=== PATIENT | female | born 1955 | race Caucasian/White ===

== ENCOUNTER 2022-09-08 09:34 | Emergency (ER) | payer OTHER ==
[~2022-09-08] VITALS: Ht 154.9 cm; Wt 68.0 kg
[2022-09-08 10:23] LABS: BILIRUBIN Negative (Negative); BLOOD Trace-Lysed (Negative); CLARITY Clear (Clear); COLOR Yellow (Yellow); GLUCOSE Negative (Negative); KETONE Negative (Negative); LEUKO ESTERASE Negative (Negative); NITRITE Negative (Negative); UROBILINOGEN 0.2 E.U./dl (0.0-1.0)
[2022-09-08 10:41] LABS: BASO % 0.7 % (0.0-1.0); EOS # 0.1 10*3/uL (0.0-0.4); EOS % 2.1 % (1.0-4.0); HEMATOCRIT 38.8 % (37.0-47.0); LYMPH # 1.4 10*3/uL (1.3-4.4); LYMPH % 33.2 % (27.0-41.0); MEAN CELL VOLUME 93.5 fl (81.0-99.0); MEAN CORPUSCULAR HGB 31.3 pg (27.0-31.0); MEAN CORPUSCULAR HGB CONC 33.5 g/dl (33.0-37.0); MEAN PLATELET VOLUME 9.4 fl (9.6-12.3); MONO # 0.5 10*3/uL (0.1-1.0); MONO % 10.9 % (3.0-9.0); NEUT # 2.3 10*3/uL (2.3-7.9); NEUT % 53.1 % (47.0-73.0); PLATELET COUNT AUTOMATED 256 10*3/uL (130-400); RED BLOOD COUNT 4.15 10*6/uL (4.10-5.10); RED CELL DISTRI WIDTH 13.1 % (0-14.5); WHITE BLOOD COUNT 4.3 10*3/uL (4.8-10.8)
[2022-09-08 10:48] LABS: BACTERIA 2+
[2022-09-08 10:49] LABS: EPITHELIAL CELLS 0-2; WBC 0-2 wbc/hpf (0-5)
[2022-09-08 10:57] LABS: BUN 14 mg/dl (9-23); CHLORIDE 108 mmol/L (98-107); LIPASE 70 U/L (12-53); POTASSIUM 3.9 mmol/L (3.4-5.1)
[2022-09-08] MEDS ORDERED: METHOCARBAMOL500 M1 PO (11:48)
== END 2022-09-08 11:50 | disposition home or self-care (01) ==
LOC: ED 09:34
PROVIDERS: Emergency Medicine
DX: R10.32 Left lower quadrant pain (principal); M54.6 Pain in thoracic spine; Z88.8 Allergy status to other drugs, medicaments and biological substances

== ENCOUNTER 2024-07-18 13:58 | Emergency (ER) | payer OTHER ==
[~2024-07-18] VITALS: Ht 154.9 cm; Wt 67.1 kg
[~2024-07-18 13:58] MED LIST: METHOCARBAMOL500 M1 PO
[2024-07-18 15:01] LABS: BILIRUBIN Negative (Negative); BLOOD 2+ (Negative); CLARITY Clear (Clear); COLOR Yellow (Yellow); GLUCOSE Negative (Negative); KETONE Negative (Negative); LEUKO ESTERASE 1+ (Negative); NITRITE Negative (Negative); SPECIFIC GRAVITY <= 1.005 (1.001-1.030); UROBILINOGEN 0.2 E.U./dl (0.0-1.0)
[2024-07-18 15:26] LABS: MEAN CELL VOLUME 95.2 fl (81.0-99.0); MEAN CORPUSCULAR HGB 31.1 pg (27.0-31.0); MEAN CORPUSCULAR HGB CONC 32.6 g/dl (33.0-37.0); MEAN PLATELET VOLUME 8.7 fl (9.6-12.3); PLATELET COUNT AUTOMATED 201 10*3/uL (130-400); RED BLOOD COUNT 3.99 10*6/uL (4.10-5.10); RED CELL DISTRI WIDTH 12.8 % (0-14.5); WHITE BLOOD COUNT 4.1 10*3/uL (4.8-10.8)
[2024-07-18 15:31] LABS: MANUAL DIFF REFLEX YES
[2024-07-18 15:49] LABS: POTASSIUM 4.8 mmol/L (3.4-5.1)
[2024-07-18 15:53] LABS: BACTERIA TRACE
[2024-07-18 16:10] LABS: ATYPICAL LYMPHS 2 % (0-0); BASOPHILS 1 % (0-1); PLATELET SUFFICIENCY NORMAL (NORMAL); TOTAL CELLS COUNTED 100 #CELLS
[2024-07-18] MEDS ORDERED: ACETAMINOPHEN 325 MG TAB PO ONE (17:40)
== END 2024-07-18 18:04 | disposition home or self-care (01) ==
LOC: ED 13:58
PROVIDERS: Internal Medicine
DX: N30.90 Cystitis, unspecified without hematuria (principal); R31.9 Hematuria, unspecified; Z88.8 Allergy status to other drugs, medicaments and biological substances

== ENCOUNTER 2025-03-19 09:18 | Emergency (ER) | payer OTHER ==
[~2025-03-19] VITALS: Ht 154.9 cm; Wt 65.8 kg
[2025-03-19] MEDS ORDERED: diphenhydrAMINE hydrochloride 50 MG/ML VIAL IV ONE (09:25)
[2025-03-19] MEDS ORDERED: Metoclopramide Hydrochloride 10 MG/2 ML VIAL IV ONE (09:25)
[2025-03-19] MEDS ORDERED: SODIUM CHLORIDE 0.9% 1,000 ML IV ONE (09:25)
[2025-03-19] MEDS ORDERED: FAMOTIDINE 20 MG in SYRINGE INFUSION 8 ML IV ONE (09:25)
[2025-03-19 09:38] LABS: BASO # 0.0 10*3/uL (0.0-0.1); BASO % 0.5 % (0.0-1.0); EOS # 0.0 10*3/uL (0.0-0.4); EOS % 0.5 % (1.0-4.0); MEAN CELL VOLUME 93.8 fl (81.0-99.0); MEAN CORPUSCULAR HGB 31.1 pg (27.0-31.0); MEAN PLATELET VOLUME 8.9 fl (9.6-12.3); MONO # 0.4 10*3/uL (0.1-1.0); MONO % 9.8 % (3.0-9.0); NEUT # 2.8 10*3/uL (2.3-7.9); NEUT % 67.9 % (47.0-73.0); NUCLEATED RED BLOOD CELL 0.0 % (0.0-0.0); NUCLEATED RED BLOOD CELL 0.0 10*3/uL (0.0-0.0); PLATELET COUNT AUTOMATED 210 10*3/uL (130-400); RED CELL DISTRI WIDTH 12.8 % (0-14.5)
[2025-03-19 10:23] LABS: BUN 21 mg/dl (9-23)
[2025-03-19] MEDS ORDERED: PEPCID20 MG PO (10:30)
[2025-03-19] MEDS ORDERED: Ondansetron4 MG PO (10:30)
== END 2025-03-19 10:32 | disposition home or self-care (01) ==
LOC: ED 09:18
PROVIDERS: Emergency Medicine
DX: R11.2 Nausea with vomiting, unspecified (principal); Z88.8 Allergy status to other drugs, medicaments and biological substances